=== PATIENT | female | born 1950 | race American Indian/Alaskan Native ===

== ENCOUNTER 2020-04-19 06:07 | Emergency (ER) | payer MEDICARE ==
--- NOTE | 2020-04-19 06:43 | Emergency Department Report ---
ED Fall HPI - General Chief Complaint: Medical Clearance Stated Complaint: GENERAL WEAKNESS Time Seen by Provider: 04/19/20 06:20 Source: EMS Mode of arrival: Stretcher - History of Present Illness Initial Comments: 69-year-old female with history of dementia presents to ED following father at [facility]. Per EMS, patient was on the toilet and the LUSTERER was wiping the patient when the patient fell forward. LOC denied. Patient sent to ER to get checked out. Patient has no complaints. She denies headache, chest pain, abdominal pain, back pain, extremity pain. MD Complaint: fall -: This morning Fall From: other (Toilet) Fall Witnessed: yes, by living facility s Place Fall Occurred: [facility] Loss of Consciousness: none Severity: mild Associated Symptoms: denies: headache, neck pain, chest paint, abdominal pain - Related Data Allergies Allergy/AdvReac Type Severity Reaction Status Date / Time No Known Allergies Allergy Unverified 04/19/20 08:05 ED Review of Systems ROS: Stated complaint: GENERAL WEAKNESS Other details as noted in HPI Comment: All other systems reviewed and negative Cardiovascular: denies: chest pain Gastrointestinal: denies: abdominal pain Musculoskeletal: denies: back pain, arthralgia Neurological: denies: headache ED Physical Exam - General Limitations: Other General appearance: alert, in no apparent distress - Head Head exam: Present: atraumatic, normocephalic - Eye Eye exam: Present: normal appearance, EOMI - ENT ENT exam: Present: mucous membranes moist - Neck Neck exam: Present: normal inspection, full ROM. Absent: tenderness - Respiratory Respiratory exam: Present: normal lung sounds bilaterally. Absent: respiratory distress - Cardiovascular Cardiovascular Exam: Present: regular rate, normal rhythm - GI/Abdominal GI/Abdominal exam: Present: soft. Absent: distended, tenderness - Extremities Exam Extremities exam: Present: normal inspection, full ROM. Absent: tenderness - Back Exam Back exam: Present: normal inspection. Absent: paraspinal tenderness, vertebral tenderness - Neurological Exam Neurological exam: Present: alert, other (Moves all extremities, no facial droop). Absent: oriented X3 (Oriented to self) - Psychiatric Psychiatric exam: Present: normal affect, normal mood - Skin Skin exam: Present: warm, dry, intact, normal color ED Course Vital Signs 04/19/20 04/19/20 06:17 07:56 Temperature 98.5 F 97.9 F Pulse Rate 73 65 Respiratory 16 14 Rate Blood Pressure 135/77 132/85 [Right] O2 Sat by Pulse 98 96 Oximetry ED Medical Decision Making - Radiology Data Radiology results: report reviewed, image reviewed - Medical Decision Making No obvious injuries. Patient is awake and alert. She is moving all extremities. No complaints of pain. CT head negative for any acute findings. Will discharge home at this time. - Differential Diagnosis Intracranial abnormality Critical care attestation.: If time is entered above; I have spent that time in minutes in the direct care of this critically ill patient, excluding procedure time. ED Disposition Clinical Impression: Fall Disposition: DC-01 TO HOME OR SELFCARE Is pt being admited?: No Condition: Stable Instructions: Fall Prevention for Older Adults (ED) Referrals: KATALINA MONGE MD [Primary Care Provider] - 3-5 Days Time of Disposition: 07:48
--- NOTE | 2020-04-19 07:10 | Cat Scan Report ---
CT HEAD WITHOUT CONTRAST INDICATION: Head injury. TECHNIQUE: All CT scans at this location are performed using CT dose reduction for ALARA by means of automated e xposure control. COMPARISON: None available. FINDINGS: HEMORRHAGE: None. EXTRA-AXIAL SPACES: Normal in size and morphology for the patient's age. VENTRICULAR SYSTEM: Normal in size and morphology for the patient's age. BRAIN PARENCHYMA: No acute findings. MIDLINE SHIFT OR HERNIATION: None. ORBITS: Normal as visualized. SOFT TISSUES OF HEAD: Normal. CALVARIUM: Normal. VISUALIZED PARANASAL SINUSES AND MASTOID AIR CELLS: Clear. ADDITIONAL FINDINGS: None. IMPRESSION: 1. No acute intracranial abnormality. Signer Name: Oleksandr Watson MD Signed: 04/19/2020 7:05 AM Workstation Name: [id number]
[2020-04-19 07:57] VITALS: BP 132/85
== END 2020-04-19 11:23 | disposition home or self-care (01) ==
LOC: ED 06:07
DX: R53.1 Weakness (principal); W18.30XA Fall on same level, unspecified, initial encounter; Y93.89 Activity, other specified; Y92.89 Other specified places as the place of occurrence of the external cause; Y99.8 Other external cause status
CPT/HCPCS: 70450; 99283